=== PATIENT | male | born 1970 | race Caucasian/White ===

== ENCOUNTER 2017-07-04 23:31 | Emergency (ER) | payer MEDICAID ==
[~2017-07-04] VITALS: Ht 165.1 cm; Wt 95.3 kg
[2017-07-04 23:40] VITALS: BP 146/89
[2017-07-05] MEDS: KETOROLAC 60 MG/2 ML VIAL IM ONE (00:40)
[2017-07-05] MEDS: DEXAMETHASONE 10 MG/ML VIAL IM ONE (00:40)
[2017-07-05] MEDS ORDERED: methylPREDNISolone SS 125 MG/2 ML VIAL ONE (00:41)
[2017-07-05] MEDS: methylPREDNISolone SS 125 MG in WATER STERILE 2 ML IM ONE (00:42)
[2017-07-05 01:00] VITALS: BP 133/75
== END 2017-07-05 01:00 | disposition home or self-care (01) ==
LOC: MED 23:31
DX: T50.Z95A Adverse effect of other vaccines and biological substances, initial encounter (principal); T63.441A Toxic effect of venom of bees, accidental (unintentional), initial encounter; Y92.89 Other specified places as the place of occurrence of the external cause; Z88.1 Allergy status to other antibiotic agents
CPT/HCPCS: 96372; 99284; J1885; J2930

== ENCOUNTER 2017-10-29 11:27 | Inpatient (IN) | payer MEDICAID ==
[~2017-10-29] VITALS: Ht 165.1 cm; Wt 92.1 kg
[2017-10-29 11:39] VITALS: BP 149/99
[2017-10-29] MEDS ORDERED: NACL 0.9% 1,000 ML IV SCH (11:57)
[2017-10-29] MEDS ORDERED: KETOROLAC 30 MG/ML VIAL IVP ONE (12:00)
--- NOTE | 2017-10-29 12:15 | NUR ---
PATIENT PRESENTS TO ED WITH RIGHT SIDED ABD PAIN BURNING, RADIATING TO RIGHT FLANK SINCE 399; DENIES N/V/D HX NONE . DENIES N/V/D; SKIN IS PINK/WARM/DRY; AAOX4 WITH EVEN AND STEADY GAIT; LUNGS CLEAR BL; HR EVEN AND REGULAR; PT DENIES ANY FEVER, CP, SOB, OR COUGH AT THIS TIME; PATIENT STATES PAIN OF 8/10 AT THIS TIME; VSS; PATIENT POSITIONED FOR COMFORT; HOB ELEVATED; BEDRAILS UP X2; BED DOWN. ER MD MADE AWARE OF PT STATUS.
[2017-10-29 12:37] LABS: MEAN CORPUSCULAR VOLUME 75 fL (80-94)
[2017-10-29 12:41] LABS: APPEARANCE,URINE HAZY (CLEAR); BILIRUBIN,URINE NEGATIVE (NEGATIVE); BLOOD, URINE TRACE-I (NEGATIVE); COLOR,URINE YELLOW (YELLOW); LEUKOCYTE ESTERASE ,URINE NEGATIVE (NEGATIVE); NITRITE, URINE NEGATIVE (NEGATIVE); PH,URINE 5.5 (5.0-9.0); UGLUCOSE 3+ (NEGATIVE)
[2017-10-29 12:53] LABS: BASOPHILS # (AUTO) 0.4 K/uL (0.00-0.22); BASOPHILS % (AUTO) 3.6 % (0.0-2.0); EOSINOPHILS # (AUTO) 0.1 K/uL (0-0.4); EOSINOPHILS % (AUTO) 0.5 % (0.0-4.0); HEMATOCRIT 41.7 % (36-52); LYMPHOCYTES # (AUTO) 1.6 K/uL (2.0-11.5); LYMPHOCYTES % (AUTO) 13.6 % (20.5-51.1); MEAN CORPUSCULAR HEMOGLOBIN 25 pg (27-31); MEAN CORPUSCULAR HGB CONC 33 g/dL (33-37); MONOCYTES # (AUTO) 0.3 K/uL (0.8-1.0); MONOCYTES % (AUTO) 2.3 % (1.7-9.3); NEUTROPHILS # (AUTO) 9.2 K/uL (1.8-7.7); PLATELET COUNT (AUTO) 191 K/uL (140-450); RED CELL DISTRIBUTION WIDTH 12.3 % (11.6-13.7); WHITE BLOOD COUNT (AUTO) 11.6 K/uL (4.8-10.8)
[2017-10-29 12:55] LABS: ANION GAP 21.9 (8-16); POTASSIUM 3.9 mmol/L (3.5-5.1)
[2017-10-29 13:07] LABS: HEMOGLOBIN 13.8 g/dL (12.0-18.0)
[2017-10-29 13:20] LABS: RBC,URINE 0-5 (RARE) /HPF (0-5); WBC,URINE 0-5 (RARE) /HPF (0-5)
[2017-10-29] MEDS ORDERED: INSULIN HUMAN REGULAR 100 UNITS/ML 10 ML VIAL IVP ONE (13:20)
[2017-10-29] MEDS ORDERED: NACL 0.9% 1,000 ML IV ONE (13:20)
[2017-10-29] MEDS ORDERED: KETOROLAC 30 MG/ML VIAL IVP PRN (14:50)
[2017-10-29] MEDS ORDERED: MORPHINE SULFATE 4 MG/ML SYR IVP ONE (15:00)
[2017-10-29] MEDS ORDERED: ONDANSETRON 4 MG/2 ML VIAL IM/IVP PRN (15:05)
[2017-10-29] MEDS ORDERED: ACETAMINOPHEN 325 MG TAB PO PRN (15:05)
[2017-10-29] MEDS ORDERED: HYDROmorphone 1 MG/ML AMP IVP PRN (15:05)
--- NOTE | 2017-10-29 15:37 | NUR ---
Patient will be admitted to care of DR COLLINS. Admited to TELE. Will go to room 105A. Belongings list completed. Report to KEITH STAFFORD.
[2017-10-29 15:40] VITALS: BP 135/81
--- NOTE | 2017-10-29 15:40 | NUR ---
PATIENT ARRIVED ON MST UNIT VIA BED/GURNEY FROM ER. PATIENT ABLE TO AMBULATE FROM ER BED TO MST BED WITH STEADY GAIT. FAMILY MEMBERS AT BEDSIDE. NO DISTRESS NOTED. COMPLAINTS OF RIGHT UPPER ABDOMINAL PAIN THAT IS WITHIN TOLERABLE AT THIS TIME. RESPIRATIONS EVEN, UNLABORED, ON ROOM AIR. AAOX4, CALM, COOPERATIVE, SKIN COLOR APPROPRIATE TO ETHNICITY, WARM TO TOUCH. SKIN IS INTACT THROUGHOUT BODY. LUNGS CTA ON ALL LOBES. ABDOMEN SOFT, NON-DISTENDED. IV SITE INTACT, PATENT, AND STARTED PATIENT ON IVF PER ORDERS. ORIENTED PATIENT TO ROOM AND CALL LIGHT FUNCTION. REVIEWED PLAN OF CARE WITH PATIENT. PATIENT VERBALIZED UNDERSTANDING. SAFETY MEASURES IN PLACE, CALL LIGHT WITHIN REACH. WILL CONTINUE TO MONITOR.
[2017-10-29] MEDS: NACL 0.9% 1,000 ML IV SCH ×2 (16:06→20:28)
[2017-10-29 16:35] LABS: BARBITURATE, URINE NEG. ng/ml (NEG <=200); BENZODIAZEPINE, URINE NEG. ng/mL (NEG <=200); CANNABINOID, URINE POS. ng/mL (NEG <=50); COCAINE, URINE NEG. ng/mL (NEG <=300); OPIATE, URINE NEG. ng/mL (NEG <=2000); PHENCYCLIDINE SCREEN,URINE NEG. ng/mL (NEG <=25)
[2017-10-29] MEDS ORDERED: SIMETHICONE 80 MG TAB.CHEW PO PRN (16:55)
--- NOTE | 2017-10-29 17:12 | NUR ---
PATIENT COMPLAINS OF DRY MOUTH. NOTIFIED DR. ANAYA. ICE CHIPS GIVEN TO PATIENT PER MD ORDERS. WILL CONTINUE TO MONITOR.
--- NOTE | 2017-10-29 17:42 | NUR ---
PATIENT COMPLAINTS OF ABDOMINAL PAIN. GIVEN SIMETHICONE PER PATIENT REQUEST. REFUSES PAIN MEDICATION AT THIS TIME. EDUCATED PATIENT THAT DO NOT BE AFRAID TO ASK FOR PAIN MEDICATION BEFORE THE PAIN BECOMES TOO SEVERE. PATIENT VERBALIZES UNDERSTANDING. SAFETY MEASURES IN PLACE, CALL LIGHT WITHIN REACH. WILL CONTINUE TO MONITOR.
--- NOTE | 2017-10-29 18:30 | NUR ---
PATIENT LYING IN BED SLEEPING, AROUSABLE BY VOICE. NO DISTRESS NOTED. DENIES ANY PAIN. WILL CONTINUE TO MONITOR.
--- NOTE | 2017-10-29 19:22 | NUR ---
GAVE REPORT TO AUTOMATED MANUFACTURING INSTRUCTOR NURSE FOR CONTINUITY OF CARE. PATIENT IN STABLE CONDITION.
--- NOTE | 2017-10-29 19:30 | NUR ---
RECEIVED REPORT FROM AM NURSE. PT RESTING IN BED, AOX4, AMBULATORY, ABLE TO VERBALIZE NEEDS. FIRE HYDRANT OPERATOR IN PLACE. PT C/O RUQ SHARP PAIN, PAIN TOLERABLE, PT WILL CALL FOR PAIN MED IF NEEDED. PT DENIES NAUSEA/VOMITING. IV ACCESS ASYMPTOMATIC, PATENT AND INTACT. IVF INFUSING WELL. DISCUSSED AND REVIEWED PLAN OF CARE WITH PT. PT VERBALIZED UNDERSTANDING. ALL NEEDS MET. SAFETY MEASURES ENSURED. CALL LIGHT WITHIN REACH.
[2017-10-29 20:00] VITALS: BP 137/81
[2017-10-29] MEDS: BLOOD GLUCOSE MONITORING 1 DEV DEV FS SCH (20:27)
[2017-10-29] MEDS: INSULIN LISPRO SLIDING SCALE 100 UNITS/ML VIAL SUBQ PRN (20:27)
--- NOTE | 2017-10-29 20:28 | NUR ---
BLOOD GLUCOSE 232. SPOKE WITH DR AYALA, MADE MD AWARE OF BLOOD GLUSOSE AT THIS TIME, DISCUSSED THAT PT HAD ELEVATED GLUCOSE 518 IN ER AT ADMISSION, NO PRESENT HX OF DM. MD TO INCREASE IVF TO NS AT 200ML/HR AND OK TO ADMINISTER SLIDING SCALE INSULIN. ADMINISTERED INSULIN COVERAGE WITH EDUCATION, PT VERBALIZED UNDERSTANDING, TOLERATED MED WELL. ALL NEEDS MET. SAFETY MEASURES ENSURED. CALL LIGHT WITHIN REACH.
[2017-10-29 23:54] LABS: PHOSPHORUS 2.6 mg/dL (2.5-4.9)
[2017-10-29 23:55] LABS: MAGNESIUM 2.5 mg/dL (1.8-2.4)
[2017-10-30] VITALS: BP 140/97
--- NOTE | 2017-10-30 00:06 | NUR ---
PT C/O IV ON R AC OCCASIONALLY ALERTING PRESSURE WHEN PT BENDS ARM. PT AGREED TO INSERT NEW IV SITE. INSERTED NEW IV 20G ON R FA, CONTINUED TO ADMINISTERED IVF. IV ON R AC DISCONTINUED, CANNULA INTACT, PT TOLERATED WELL. PT C/O RUQ PAIN, REPORTS BETTER RELIEF THAN EARLIER, ALL NEEDS MET. IVF INFUSING WELL. SAFETY MEASURES ENSURED. CALL LIGHT WITHIN REACH.
[2017-10-30 00:47] LABS: CREATININE 0.9 mg/dL (0.7-1.3); TOTAL BILIRUBIN 0.4 mg/dL (0.0-1.0)
[2017-10-30 00:48] LABS: ALBUMIN 4.3 g/dL (3.4-5.0)
[2017-10-30] MEDS: NACL 0.9% 1,000 ML IV SCH ×2 (01:29→06:24)
--- NOTE | 2017-10-30 02:14 | NUR ---
PT C/O HEADACHE, SEE PAIN ASSESSMENT, ADMINISTERED TYLENOL PO PRN WITH EDUCATION. PT VERBALIZED UNDERSTANDING, TOLERATED MED WELL. ALL NEEDS MET. IVF INFUSING WELL. SAFETY MEASURES ENSURED. CALL LIGHT WITHIN REACH.
--- NOTE | 2017-10-30 03:45 | NUR ---
PT SLEEPING COMFORTABLY, AROUSABLE TO NAME. PT REPORTS SLIGHT RELIEF IN HEADACHE. ALL NEEDS MET. IVF INFUSING WELL. SAFETY MEASURES ENSURED. CALL LIGHT WITHIN REACH.
[2017-10-30 04:00] VITALS: BP 131/79
[2017-10-30] MEDS: INSULIN LISPRO SLIDING SCALE 100 UNITS/ML VIAL SUBQ PRN (06:23)
[2017-10-30] MEDS: BLOOD GLUCOSE MONITORING 1 DEV DEV FS SCH (06:23)
--- NOTE | 2017-10-30 06:24 | NUR ---
BLOOD GLUCOSE 252, ADMINISTERED INSULIN COVERAGE WITH EDUCATION. PT VERBALIZED UNDERSTANDING, TOLERATED MED WELL. ALL NEEDS MET. IVF INFUSING WELL. SAFETY MEASURES ENSURED. CALL LIGHT WITHIN REACH. WILL CONTINUE TO MONITOR.
--- NOTE | 2017-10-30 07:15 | NUR ---
ENDORSED PLAN OF CARE TO AM NURSE. CONDITION STABLE.
--- NOTE | 2017-10-30 07:16 | NUR ---
RECEIVED REPORT FROM POLITICAL SCIENCE CHAIR NURSE. PATIENT LYING IN BED SLEEPING, AROUSABLE BY VOICE. NO DISTRESS NOTED. DENIES ANY PAIN AT THIS TIME. RESPIRATIONS EVEN, UNLABORED, ON ROOM AIR. AAOX4, CALM, COOPERATIVE, SKIN COLOR APPROPRIATE TO ETHNICITY, WARM TO TOUCH. SKIN IS INTACT THROUGHOUT BODY. ABLE TO AMBULATE WITH STEADY GAIT. LUNGS CTA ON ALL LOBES. ABDOMEN SOFT, NON-DISTENDED. IV SITE INTACT, PATENT, AND INFUSING IVF PER ORDERS. REVIEWED PLAN OF CARE WITH PATIENT. PATIENT VERBALIZED UNDERSTANDING. SAFETY MEASURES IN PLACE, CALL LIGHT WITHIN REACH. WILL CONTINUE TO MONITOR.
[2017-10-30 08:00] VITALS: BP 136/75
--- NOTE | 2017-10-30 09:20 | NUR ---
PATIENT HAS BEEN SCREENED AND CATEGORIZED LOW NUTRITION RISK. PATIENT WILL BE SEEN WITHIN 7 DAYS OF ADMISSION. 11/04/[address]
[2017-10-30 09:56] LABS: PROTHROMBIN TIME 10.6 secs (10.8-13.4)
--- NOTE | 2017-10-30 10:17 | NUR ---
CM NOTE PER MOTORCYCLE SUBASSEMBLER EDUIN, SEND REVIEWS ONLY TO [facility] [phone] # [phone] [address] EXT [phone]
--- NOTE | 2017-10-30 10:30 | NUR ---
PATIENT WISHES TO LEAVE AMA DUE TO WORK CONSTRAINTS. PATIENT SAYS HE CANNOT AFFORD TO STAY ANOTHER NIGHT AND SKIP WORK DUE TO PATIENT ALREADY TAKEN MEDICAL LEAVE FOR WORK AND NEEDS TO PAY BILLS. DR. ANAYA AT BEDSIDE EXPLAINING THE RISKS OF LEAVING AMA. PATIENT VERBALIZED UNDERSTANDING AND WISHES TO PROCEED. AMA FORMED SIGNED BY PATIENT AND MD. IV SITE REMOVED WITH MINIMAL BLOOD AND LUMEN COMPLETELY INTACT. ID BANDS REMOVED. PATIENT ALREADY DRESSED UP AND IS AT BEDSIDE READY TO TAKE PATIENT HOME. ESCORTED PATIENT DOWN TO LOBBY VIA STEADY AMBULATION. PATIENT LEFT AMA AT THIS TIME WITH IN STABLE CONDITION.
[2017-10-31 06:16] LABS: T4 (THYROXINE) 8.2 ug/dL (4.5-12.0)
== END 2017-10-30 10:30 | disposition left against medical advice (07) | DRG 282 ==
LOC: MED 11:27 → MTU 14:45
PROVIDERS: ADMIT Family Medicine; ATTEND Family Medicine
DX: K85.90 Acute pancreatitis without necrosis or infection, unspecified (principal); N17.0 Acute kidney failure with tubular necrosis; E11.00 Type 2 diabetes mellitus with hyperosmolarity without nonketotic hyperglycemic-hyperosmolar coma (NKHHC); E87.1 Hypo-osmolality and hyponatremia; R80.9 Proteinuria, unspecified; Z53.21 Procedure and treatment not carried out due to patient leaving prior to being seen by health care provider; Z88.1 Allergy status to other antibiotic agents
CPT/HCPCS: 36415; 36600; 71045; 80053; 80305; 81001; 82150; 82803; 82948; 83036; 83615; 83690; 83735; 83880; 84100; 84436; 84439; 84443; 84479; 85025; 85610; 85730; 87081; 93005; 96361; 96374; 96375; 99285; J1815; J1885; J2270; J7030; Q0092

== ENCOUNTER 2017-10-31 10:06 | Observation (INO) | payer MEDICAID ==
[~2017-10-31] VITALS: Ht 165.1 cm; Wt 95.3 kg
[2017-10-31 10:19] VITALS: BP 157/90
--- NOTE | 2017-10-31 10:22 | NUR ---
PT W/C ASSISTED TO BED 11.
--- NOTE | 2017-10-31 10:23 | NUR ---
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 HX PANCREATITIS. DENIES N/V/D; SKIN IS PINK/WARM/DRY; AAOX4 WITH EVEN AND STEADY GAIT; LUNGS CLEAR BL; PT DENIES ANY FEVER, CP, SOB, OR COUGH AT THIS TIME; PATIENT STATES PAIN OF 10/10 AT THIS TIME; PATIENT POSITIONED FOR COMFORT; HOB ELEVATED; BEDRAILS UP X2; BED DOWN. ER MD MADE AWARE OF PT STATUS.
--- NOTE | 2017-10-31 10:30 | NUR ---
Note undone in EDM - 10/31/17 at 1031 by MED1 46/M BIB FATHER C/O RIGHT SIDED ABD PAIN STARTED LAST NIGHT; D/C YESTERDAY FROM HERE, DX PANCREATITIS. HX PANCREATITIS. DENIES N/V/D; SKIN IS PINK/WARM/DRY; AAOX4 WITH EVEN AND STEADY GAIT; LUNGS CLEAR BL; PT DENIES ANY FEVER, CP, SOB, OR COUGH AT THIS TIME; PATIENT STATES PAIN OF 10/10 AT THIS TIME; PATIENT POSITIONED FOR COMFORT; HOB ELEVATED; BEDRAILS UP X2; BED DOWN. ER MADE AWARE OF PT STATUS.
--- NOTE | 2017-10-31 10:54 | NUR ---
Patient being evaluated by DR CUELLAR at bedside.
[2017-10-31] MEDS ORDERED: NACL 0.9% 1,000 ML IV SCH ×2 (10:59→12:40)
[2017-10-31] MEDS ORDERED: ONDANSETRON 4 MG/2 ML VIAL IVP ONE (11:00)
[2017-10-31] MEDS ORDERED: MORPHINE SULFATE 10 MG/ML SYR IVP ONE (11:00)
[2017-10-31 11:32] LABS: HEMATOCRIT 40.5 % (36-52); HEMOGLOBIN 13.1 g/dL (12.0-18.0); MEAN CORPUSCULAR HEMOGLOBIN 25 pg (27-31); MEAN CORPUSCULAR HGB CONC 32 g/dL (33-37); MEAN CORPUSCULAR VOLUME 77 fL (80-94); PLATELET COUNT (AUTO) 272 K/uL (140-450); RED BLOOD CELL COUNT(AUTO) 5.26 MIL/uL (4.20-6.10); RED CELL DISTRIBUTION WIDTH 12.9 % (11.6-13.7); WHITE BLOOD COUNT (AUTO) 18.2 K/uL (4.8-10.8)
[2017-10-31 11:51] LABS: LYMPHOCYTES % (MANUAL) 12 % (20-46); MONOCYTES % (MANUAL) 4 % (5-12)
--- NOTE | 2017-10-31 11:58 | NUR ---
FAMILY AT BEDSIDE. R ABD PAIN 4/10 AT THIS TIME. Patient appears to be resting comfortably in bed. Vital Signs within normal limits. Respirations even and unlabored.WILL CONTINUE TO MONITOR.
[2017-10-31 12:02] LABS: ANION GAP 24.2 (8-16); POTASSIUM 4.2 mmol/L (3.5-5.1)
[2017-10-31 12:03] LABS: TOTAL BILIRUBIN 0.9 mg/dL (0.0-1.0)
[2017-10-31 12:04] LABS: ALBUMIN 3.4 g/dL (3.4-5.0)
[2017-10-31 12:23] LABS: APPEARANCE,URINE HAZY (CLEAR); BILIRUBIN,URINE 1+ (NEGATIVE); BLOOD, URINE 2+ (NEGATIVE); COLOR,URINE YELLOW (YELLOW); LEUKOCYTE ESTERASE ,URINE NEGATIVE (NEGATIVE); NITRITE, URINE NEGATIVE (NEGATIVE); UGLUCOSE 2+ (NEGATIVE)
[2017-10-31] MEDS ORDERED: MORPHINE SULFATE 2 MG/ML SYR IVP PRN (12:40)
[2017-10-31] MEDS ORDERED: MORPHINE SULFATE 4 MG/ML SYR IVP PRN (12:40)
[2017-10-31] MEDS ORDERED: ONDANSETRON 4 MG/2 ML VIAL IVP PRN (12:40)
[2017-10-31] MEDS ORDERED: LORazepam 2 MG/ML VIAL IVP PRN (12:40)
[2017-10-31 13:04] LABS: RBC,URINE 0-5 (RARE) /HPF (0-5); WBC,URINE 0-5 (RARE) /HPF (0-5)
[2017-10-31] MEDS ORDERED: ACETAMINOPHEN 325 MG TAB PO PRN (13:40)
[2017-10-31] MEDS ORDERED: HYDROcodone/APAP 7.5/325 MG 1 TAB PO PRN (13:40)
[2017-10-31] MEDS ORDERED: DOCUSATE SODIUM 100 MG GELCAP PO PRN (13:40)
[2017-10-31] MEDS ORDERED: ONDANSETRON 4 MG/2 ML VIAL IM/IVP PRN (13:40)
[2017-10-31 14:10] VITALS: BP 145/95
--- NOTE | 2017-10-31 14:10 | NUR ---
PATIENT ADMITTED TO THE UNIT FROM ER. PATIENT AWAKE, ALERT AND ORIENTED. NO S/S OF DISTRESS NOTED. PATIENT ON ROOM AIR. NO SOB. PATIENT REPORTS OF 6/10 ABD PAIN. WILL MEDICATE. NO NAUSEA OR VOMITING AT THIS TIME. PATIENT ON TELE MONITORING. BED LOWERED WITH CALL LIGHT WITHIN REACH. WILL CONTINUE TO MONITOR
--- NOTE | 2017-10-31 14:14 | NUR ---
Patient will be admitted to care of DR LEVINE. Admited to TELE. Will go to [id number]. Belongings list completed. Report to KEITH STOVALL.
[2017-10-31 14:49] LABS: PROTHROMBIN TIME 11.2 secs (10.8-13.4)
[2017-10-31] MEDS: HYDROmorphone PFS 2 MG/ML SYR IVP PRN ×3 (14:51→23:17)
[2017-10-31 14:53] LABS: BARBITURATE, URINE NEG. ng/ml (NEG <=200); BENZODIAZEPINE, URINE NEG. ng/mL (NEG <=200); CANNABINOID, URINE NEG. ng/mL (NEG <=50); COCAINE, URINE NEG. ng/mL (NEG <=300); OPIATE, URINE POS. ng/mL (NEG <=2000); PHENCYCLIDINE SCREEN,URINE NEG. ng/mL (NEG <=25)
[2017-10-31 15:00] LABS: FREE T4 (FREE THYROXINE) 1.13 ng/dL (0.76-1.46); MAGNESIUM 1.8 mg/dL (1.8-2.4); PHOSPHORUS 2.1 mg/dL (2.5-4.9); THYROID STIMULATING HORMONE 1.64 uIU/mL (0.34-3.74)
[2017-10-31] MEDS: NACL 0.9% 1,000 ML IV SCH (15:10)
--- NOTE | 2017-10-31 15:29 | NUR ---
TEMP 100.8. PRN TYLENOL ADMINISTERED. COOLING MEASURES IN PLACE. WILL CONTINUE TO MONITOR
--- NOTE | 2017-10-31 16:30 | NUR ---
TEMP 98.5. NO S/S OF DISTRESS NOTED
[2017-10-31] MEDS ORDERED: LEVOFLOXACIN 500 MG/D5W PREMIX 100 ML IV SCH (17:00)
--- NOTE | 2017-10-31 17:59 | NUR ---
LEVAQUIN IVPB DONE
--- NOTE | 2017-10-31 19:19 | NUR ---
PATIENT REPORT GIVEN AT BEDSIDE. PATIENT ENDORSED IN STABLE CONDITION
[2017-10-31 20:00] VITALS: BP 138/81
--- NOTE | 2017-10-31 20:01 | NUR ---
PT C/O OF PAIN, PAIN MEDICATION GIVEN, PT TOLERATED WELL, NO DISTRESS NOTED, CALL LIGHT WITHIN REACH, WILL CONTINUE TO MONITOR.
[2017-10-31] MEDS: CLINDAMYCIN 600 MG in DEXTROSE 5% 50 ML IV SCH (20:36)
--- NOTE | 2017-10-31 21:06 | NUR ---
CLINDAMYCIN ANTIBIOTIC FINISHED INFUSING.
--- NOTE | 2017-10-31 21:06 | NUR ---
IVF NS FINISHED INFUSING Addendum: 11/25/17 at 0405 by Katty Solares RN WORNG INTERVENTION
--- NOTE | 2017-10-31 21:36 | NUR ---
DUE MEDICATION GIVEN, PT TOLERATED WELL, NO DISTRESS NOTED, CALL LIGHT WITHIN REACH, WILL CONTINUE TO MONITOR.
--- NOTE | 2017-10-31 23:17 | NUR ---
PT C/O OF PAIN IN THE ABD 05/11, DUE PAIN MEDICATION GIVEN, PT TOLERATED WELL, NO DISTRESS NOTED, CALL LIGHT WITHIN REACH, WILL CONTINUE TO MONITOR.
[2017-11-01] VITALS: BP 134/80
[2017-11-01] MEDS: HYDROmorphone PFS 2 MG/ML SYR IVP PRN ×2 (03:18→08:21)
--- NOTE | 2017-11-01 03:18 | NUR ---
PT C/O OF PAIN IN THE ABD, 8/10 ACHING, PAIN MEDICATION GIVEN, PT TOLERATED WELL, STABLE, NO DISTRESS NOTED, WILL CONTINUE TO MONITOR.
[2017-11-01 04:00] VITALS: BP 140/76
[2017-11-01] MEDS: CLINDAMYCIN 600 MG in DEXTROSE 5% 50 ML IV SCH (05:31)
[2017-11-01] MEDS ORDERED: INSULIN LISPRO SLIDING SCALE 100 UNITS/ML VIAL SUBQ PRN (05:55)
--- NOTE | 2017-11-01 06:00 | NUR ---
IVF NS FINISHED INFUSING. Addendum: 11/25/17 at 0404 by Katty Solares RN WRONG INTERVENTION
--- NOTE | 2017-11-01 06:00 | NUR ---
CLINDAMYCIN ANTIBIOTIC FINISHED INFUSING.
[2017-11-01 06:12] LABS: T4 (THYROXINE) 6.8 ug/dL (4.5-12.0)
[2017-11-01] MEDS: NACL 0.9% 1,000 ML IV SCH ×2 (06:54→11:50)
--- NOTE | 2017-11-01 06:54 | NUR ---
IVF NS FINISHED INFUSING
[2017-11-01] MEDS: BLOOD GLUCOSE MONITORING 1 DEV DEV FS SCH ×2 (06:55→12:36)
[2017-11-01 07:16] LABS: HEMATOCRIT 35.8 % (36-52); HEMOGLOBIN 11.8 g/dL (12.0-18.0); MEAN CORPUSCULAR HEMOGLOBIN 25 pg (27-31); MEAN CORPUSCULAR HGB CONC 33 g/dL (33-37); MEAN CORPUSCULAR VOLUME 76 fL (80-94); PLATELET COUNT (AUTO) 246 K/uL (140-450); RED BLOOD CELL COUNT(AUTO) 4.68 MIL/uL (4.20-6.10); RED CELL DISTRIBUTION WIDTH 13.3 % (11.6-13.7); WHITE BLOOD COUNT (AUTO) 15.4 K/uL (4.8-10.8)
--- NOTE | 2017-11-01 07:17 | NUR ---
ENDORSED PT TO DAY SHIFT NURSE GENNA PARKER, PT STABLE, NO DISTRESS NOTED, CALL LIGHT WITHIN REACH.
--- NOTE | 2017-11-01 07:20 | NUR ---
RECEIVED PATIENT REPORT AT BEDSIDE FROM NIGHT NURSE, PATIENT IS SLEEPING AND EASILY AROUSABLE. HE IS AAOX4 AND SHOWS NO S/S OF ACUTE DISTRESS ON ROOM AIR. PATIENT STATES RIGHT SIDED ABD PAIN OF 5/10 THAT IS "INCREASING" AND WOULD LIKE TO TAKE HIS PAIN MEDICATION "SOON BEFORE IT BECOMES UNTOLERABLE." IV NOTED ON THE RIGHT AC WITH IVF'S INFUSING WELL, SKIN IS INTACT, ON TELE MONITOR. DISCUSSED POC WITH PATIENT AND HE VERBALIZED UNDERSTANDING OF CARE, SAFETY PRECAUTIONS IN PLACE. BED IN LOW POSITION WITH CALL LIGHT WITHIN REACH.
[2017-11-01 07:34] LABS: MAGNESIUM 1.7 mg/dL (1.8-2.4); PHOSPHORUS 1.6 mg/dL (2.5-4.9)
[2017-11-01 07:46] LABS: ANION GAP 23.4 (8-16); CARBON DIOXIDE 14.5 mmol/L (21-32); POTASSIUM 3.9 mmol/L (3.5-5.1)
[2017-11-01 08:00] VITALS: BP 143/81
[2017-11-01 08:25] LABS: CREATININE 0.9 mg/dL (0.7-1.3)
--- NOTE | 2017-11-01 08:25 | NUR ---
PATIENT STATED ABD PAIN IS NOW 7/10,ADMINISTERED DILAUDID 0.5 MG IVP, WILL REASSESS PAIN IN ONE HR. ALL NEEDS MET AT THIS TIME.
[2017-11-01 08:30] LABS: LYMPHOCYTES % (MANUAL) 7 % (20-46); MONOCYTES % (MANUAL) 5 % (5-12)
--- NOTE | 2017-11-01 08:57 | NUR ---
PATIENT HAS BEEN SCREENED AND CATEGORIZED MODERATE NUTRITION RISK. PATIENT WILL BE SEEN WITHIN 3-5 DAYS OF ADMISSION. 11/02/17-11/04/[address]
[2017-11-01] MEDS ORDERED: ENOXAPARIN 40 MG/0.4 ML SYR SUBQ ONE (09:00)
[2017-11-01] MEDS ORDERED: SODIUM PHOS / POTASSIUM PHOS 1 PKT PDR PO SCH (09:52)
--- NOTE | 2017-11-01 10:25 | NUR ---
PATIENT RECEIVING US OF THE ABD AT THIS TIME, WILL TRY AGAIN LATER TO GIVE SCHEDULED MEDICATION.
--- NOTE | 2017-11-01 11:14 | NUR ---
CM NOTE RECEIVED CALL FROM ATUL MARROQUIN PH# [phone] EXT [phone] OF [facility] AND I GAVE HER A VERBAL CLINICAL UPDATE ON THE PATIENT. PER CARA NO NEED TO SEND [facility] A REVIEW BUT JUST TO SEND H&P. FAXED H&P TO [facility] [phone]. PER [facility] ATUL MARROQUIN, PATIENT HAS TO BE TRANSFERRED TO ONE OF THEIR CONTRACTED FACILITIES [facility], MED SURG FLR [address], ACCEPTING DR. VIEYRA, NUMBER TO CALL FOR REPORT PH# [phone], FOR [facility] AUTH# [id number]. PER KIRK OF [facility] PH# [phone] TRAUMA COORDINATOR TIME 1300 TODAY GOING TO [facility]. DR. ANAYA, CHARGE NURSE GENNA PARDO RN AND PATIENT AWARE.
[2017-11-01] MEDS ORDERED: NACL 0.9% 1,000 ML IV SCH (12:06)
--- NOTE | 2017-11-01 12:14 | NUR ---
1100 MET WITH PT AT BEDSIDE AND INFORMED HIM OF THE POSSIBILITY OF TRANSFERRING TO AN IN [facility] HAS REQUESTED. PT STATED HE UNDERSTOOD BUT HOPED THAT HE COULD STAY HERE AT [facility].
[2017-11-01 12:30] VITALS: BP 141/93
--- NOTE | 2017-11-01 13:00 | NUR ---
IVF'S NS FINISHED.
--- NOTE | 2017-11-01 13:35 | NUR ---
PATIENT LEAVING WITH IV ON THE RIGHT AC 20 G.
--- NOTE | 2017-11-01 13:38 | NUR ---
[facility] CAME ONTO UNIT, GAVE REPORT TO RENEE, PATIENT STATED HE WANTED PAIN MEDICATION HOWEVER UNABLE TO GIVE D/T PROTOCOL. PATIENT HAD REFUSED INSULIN, IV ABX WAS NOT GIVEN BC [facility] ARRIVED ONTO UNIT AND PATIENT GETTING READY TO BE DISCHARGE TO [place] TO [facility] ON [address]. PATIENT HAS BEEN DISCHARGED, ALL PAPERWORK SIGNED, ALL DISCHARGE INSTRUCTIONS GIVEN, ALL QUESTIONS ANSWERED, IMAGE CD WITH PATIENT, ALL BELONGINGS IN PATIENT'S POSSESSION. TELE BOX REMOVED. PATIENT LEFT IN STABLE CONDITION WITH [facility] PRESENT AT SIDE.
--- NOTE | 2017-11-01 13:45 | NUR ---
PATIENT OFF UNIT
== END 2017-11-01 13:42 | disposition short-term general hospital (02) ==
LOC: MED 10:06 → INTOOBSV 13:31 → MTU 13:31
PROVIDERS: ADMIT Family Medicine Sports Medicine; ATTEND Family Medicine Sports Medicine
DX: R10.13 Epigastric pain (principal); R10.11 Right upper quadrant pain; R80.9 Proteinuria, unspecified; E87.1 Hypo-osmolality and hyponatremia; F12.929 Cannabis use, unspecified with intoxication, unspecified
CPT/HCPCS: 36415; 71045; 74177; 76700; 80048; 80053; 80305; 81001; 82150; 82948; 83605; 83615; 83690; 83735; 84100; 84436; 84439; 84443; 84479; 85025; 85610; 85730; 87040; 87081; 87086; 93005; 96361; 96365; 96367; 96372; 96375; 96376; 99285; G0378; J1170; J1815; J1956; J2270; J2405; J3490; J7030; J7060; Q0092; Q9967; 96374

== ENCOUNTER 2018-04-20 20:06 | Emergency (ER) | payer MEDICAID ==
[~2018-04-20] VITALS: Ht 165.1 cm; Wt 87.1 kg
[2018-04-20 20:08] VITALS: BP 130/84
--- NOTE | 2018-04-20 20:13 | NUR ---
PT AMBULATED TO ER BED 4 W/ DAUGHTER.
--- NOTE | 2018-04-20 20:20 | NUR ---
C/O CELLULITIS TO LT MEDIAL LEG S/P INSECT BITE X 1 DAY. +REDNESS +MILD EDEMA TO SITE, ALSO REPORTS NAUSEA. PT IS AWAKE AND ACTING APPROPRIATE.PT LAYING IN BED IN NO ACUTE DISTRESS, DAUGHTER SITTING IN BED WELL. PMH: PREDIABETES
[2018-04-20] MEDS ORDERED: IBUPROFEN 800 MG TAB PO ONE (21:05)
[2018-04-20 21:26] VITALS: BP 125/85
--- NOTE | 2018-04-20 21:26 | NUR ---
Patient discharged with v/s stable. Written and verbal after care instructions given and explained. Patient alert, oriented and verbalized understanding of instructions. Ambulatory with steady gait. All questions addressed prior to discharge. ID band removed. Patient advised to follow up with PMD. Rx of CLINDAMYCIN AND MOTRIN given. Patient educated on indication of medication including possible reaction and side effects. Opportunity to ask questions provided and answered.
== END 2018-04-20 21:26 | disposition home or self-care (01) ==
LOC: MED 20:06
DX: S80.862A Insect bite (nonvenomous), left lower leg, initial encounter (principal); Z88.1 Allergy status to other antibiotic agents; W57.XXXA Bitten or stung by nonvenomous insect and other nonvenomous arthropods, initial encounter; Y93.89 Activity, other specified; Y92.89 Other specified places as the place of occurrence of the external cause; Y99.8 Other external cause status
CPT/HCPCS: 99283

== ENCOUNTER 2018-08-24 18:50 | Emergency (ER) | payer MEDICAID ==
[~2018-08-24] VITALS: Ht 165.1 cm; Wt 89.4 kg
[2018-08-24 18:58] VITALS: BP 145/87
--- NOTE | 2018-08-24 18:58 | NUR ---
PT AMBULATED TO ER BED 03
--- NOTE | 2018-08-24 19:13 | NUR ---
PT PRESENTS TO ED WITH C/O ABSCESS TO GROIN AREA X 1 DAY. SMALL, REDDENED LUMP NOTED TO RIGHT GROIN AREA. NO DRAINAGE OR DISCHARGE NOTED. PT PLACED INTO BED, PENDING MD GRIFFIN.
--- NOTE | 2018-08-24 19:23 | NUR ---
Dr. Anderson evaluating patient at bedside.
[2018-08-24] MEDS ORDERED: KETOROLAC 30 MG/ML VIAL IM ONE (19:30)
[2018-08-24 19:57] VITALS: BP 130/80
--- NOTE | 2018-08-24 19:58 | NUR ---
Patient discharged with v/s stable. Written and verbal after care instructions given and explained. Patient alert, oriented and verbalized understanding of instructions. Ambulatory with steady gait. All questions addressed prior to discharge. ID band removed. Patient advised to follow up with PMD. Rx of NAPROSYN, TYLENOL, BACTRIM given. Patient educated on indication of medication including possible reaction and side effects. Opportunity to ask questions provided and answered.
== END 2018-08-24 19:58 | disposition home or self-care (01) ==
LOC: MED 18:50
DX: L73.1 Pseudofolliculitis barbae (principal); Z88.1 Allergy status to other antibiotic agents
CPT/HCPCS: 96372; 99284; J1885

== ENCOUNTER 2018-08-26 15:36 | Emergency (ER) | payer MEDICAID ==
[~2018-08-26] VITALS: Ht 165.1 cm; Wt 89.4 kg
[2018-08-26 15:45] VITALS: BP 121/79
--- NOTE | 2018-08-26 15:45 | NUR ---
PT AMBULATES TO BED 5
--- NOTE | 2018-08-26 15:50 | NUR ---
47Y/M BIB SELF C/O RECHECK FOR RT GROIN ABSCESS WITH PAIN AND DISCHARGE SEEN ON 08/24/2018. PT IS AAOX4, VSS, BED DOWN, BEDRAIL UP X 1, ER MD AWARE AND NOTIFIED OF PT STATUS. HX; DENIES RX; DENIES
[2018-08-26 17:50] VITALS: BP 121/79
--- NOTE | 2018-08-26 17:58 | NUR ---
PT STATES "THE WAIT WAS TO LONG, PT IS JUST GONNA GO SOMEWHERE ELSE".
--- NOTE | 2018-08-26 17:58 | NUR ---
PATIENT LEFT WITHOUT BEING SEEN BY DR. AYALA. NO FURTHER CARE PROVIDED FOR PATIENT.
== END 2018-08-26 17:58 | disposition left against medical advice (07) ==
LOC: MED 15:36
DX: Z48.01 Encounter for change or removal of surgical wound dressing (principal); Z53.21 Procedure and treatment not carried out due to patient leaving prior to being seen by health care provider

== ENCOUNTER 2019-02-05 10:45 | Emergency (ER) | payer MEDICAID ==
[~2019-02-05] VITALS: Ht 165.1 cm; Wt 90.3 kg
[2019-02-05 10:56] VITALS: BP 144/93
--- NOTE | 2019-02-05 11:02 | NUR ---
PATIENT PRESENTS TO ED WITH c/o cough congestion bodyaches fever fatigue sob x2 days . DENIES N/V/D; SKIN IS PINK/WARM/DRY; AAOX4 WITH EVEN AND STEADY GAIT; LUNGS CLEAR BL; HR EVEN AND REGULAR; PATIENT STATES PAIN OF 6/10 AT THIS TIME; VSS; PATIENT POSITIONED FOR COMFORT; HOB ELEVATED; BEDRAILS UP X2; BED DOWN. ER MD MADE AWARE OF PT STATUS.
[2019-02-05] MEDS ORDERED: ALBUTEROL 0.083% 2.5 MG/3 ML NEBU INH ONE (11:15)
[2019-02-05] MEDS ORDERED: predniSONE 20 MG TAB PO ONE (11:15)
[2019-02-05] MEDS ORDERED: IPRATROPIUM 0.02% 0.5 MG/2.5 ML NEBU INH ONE (11:15)
[2019-02-05 12:35] VITALS: BP 145/90
--- NOTE | 2019-02-05 12:35 | NUR ---
Patient discharged with v/s stable. Written and verbal after care instructions given and explained. Patient alert, oriented and verbalized understanding of instructions. Ambulatory with steady gait. All questions addressed prior to discharge. ID band removed. Patient advised to follow up with PMD. Rx of prednisone/tessalon/ibuprofen/albuterol given. Patient educated on indication of medication including possible reaction and side effects. Opportunity to ask questions provided and answered.
== END 2019-02-05 12:35 | disposition home or self-care (01) ==
LOC: MED 10:45
DX: J06.9 Acute upper respiratory infection, unspecified (principal); J98.01 Acute bronchospasm; R19.7 Diarrhea, unspecified; E11.9 Type 2 diabetes mellitus without complications; Z88.1 Allergy status to other antibiotic agents; Z98.890 Other specified postprocedural states
CPT/HCPCS: 94640; 99283; J7512; J7613; J7644

== ENCOUNTER 2019-05-08 15:05 | Emergency (ER) | payer MEDICAID ==
[~2019-05-08] VITALS: Ht 165.1 cm; Wt 90.7 kg
[2019-05-08 15:27] VITALS: BP 128/87
--- NOTE | 2019-05-08 15:27 | NUR ---
PT AMBULATED TO BED 9
--- NOTE | 2019-05-08 15:30 | NUR ---
PT PRESENTED TO ED C/O RIGHT CHEST PAIN THAT STARTED TODAY AFTER CLEANING UP HIS DRIVEWAY. NO C/O TRAUMA OR N/V/D. PT STATED TAKING ASPIRIN 350MG BUT DID NOT HELP, PT ABLE TO MOVE BILATERAL ARMS BUT STILL C/O PAIN RIGHT CHEST PAIN 5/10 ACHING/SORENESS, DOES NOT RADIATE, PT STATED "ITS MORE LIKE A MUSCLE SORE". AAOX4, RR EVEN UNLABORED, ED MD DR. CUELLAR MADE AWARE, WILL CONTINUE TO MONITOR CLOSELY. BED IN LOWEST POSITION.
--- NOTE | 2019-05-08 16:29 | NUR ---
LAB AT BEDSIDE
--- NOTE | 2019-05-08 16:30 | NUR ---
PT IN BED RESTING, VVS AT THIS TIME. WILL CONTINUE TO MONITOR CLOSELY.
[2019-05-08 17:02] LABS: BASOPHILS % (AUTO) 0.6 % (0.0-2.0); EOSINOPHILS # (AUTO) 0.1 K/uL (0-0.4); EOSINOPHILS % (AUTO) 0.7 % (0.0-4.0); HEMATOCRIT 40.1 % (36-52); HEMOGLOBIN 13.2 g/dL (12.0-18.0); LYMPHOCYTES # (AUTO) 2.6 K/uL (2.0-11.5); LYMPHOCYTES % (AUTO) 32.4 % (20.5-51.1); MEAN CORPUSCULAR HEMOGLOBIN 26 pg (27-31); MEAN CORPUSCULAR HGB CONC 33 g/dL (33-37); MEAN CORPUSCULAR VOLUME 77.3 fL (80-94); MONOCYTES # (AUTO) 0.5 K/uL (0.8-1.0); MONOCYTES % (AUTO) 6.1 % (1.7-9.3); NEUTROPHILS # (AUTO) 4.9 K/uL (1.8-7.7); NEUTROPHILS % (AUTO) 60.2 % (42.2-75.2); PLATELET COUNT (AUTO) 292 K/uL (140-450); RED BLOOD CELL COUNT(AUTO) 5.18 MIL/uL (4.20-6.10); RED CELL DISTRIBUTION WIDTH 14.1 % (11.6-13.7); WHITE BLOOD COUNT (AUTO) 8.2 K/uL (4.8-10.8)
[2019-05-08 17:15] LABS: ANION GAP 11.6 (8-16); CARBON DIOXIDE 27.3 mmol/L (21-32); POTASSIUM 3.9 mmol/L (3.5-5.1)
[2019-05-08 17:21] LABS: ALBUMIN 3.9 g/dL (3.4-5.0); TOTAL BILIRUBIN 0.3 mg/dL (0.0-1.0)
[2019-05-08 17:50] VITALS: BP 119/76
--- NOTE | 2019-05-08 17:50 | NUR ---
Patient discharged with v/s stable. Written and verbal after care instructions given and explained. Patient alert, oriented and verbalized understanding of instructions. Ambulatory with steady gait. All questions addressed prior to discharge. ID band removed. Patient advised to follow up with PMD. Rx of NAPROSYN 375MG given. Patient educated on indication of medication including possible reaction and side effects. Opportunity to ask questions provided and answered.
== END 2019-05-08 17:50 | disposition home or self-care (01) ==
LOC: MED 15:05
DX: R07.89 Other chest pain (principal); R73.03 Prediabetes; Z88.1 Allergy status to other antibiotic agents; Z98.890 Other specified postprocedural states
CPT/HCPCS: 36415; 71045; 80053; 84484; 85025; 93005; 99284; Q0092

== ENCOUNTER 2019-11-18 18:58 | Emergency (ER) | payer MEDICAID ==
[~2019-11-18] VITALS: Ht 165.1 cm; Wt 93.0 kg
[2019-11-18 19:20] VITALS: BP 140/82
--- NOTE | 2019-11-18 19:23 | NUR ---
TO LOBBY A/W BED AMBULATORY
--- NOTE | 2019-11-18 20:46 | NUR ---
PT TAKEN TO BED 7
--- NOTE | 2019-11-18 20:50 | NUR ---
PT C/O 05/11 MUSCULOSKELETAL PAIN SURROUNDING THE RIGHT EAR. STATES IT HAS BEEN GOING ON FOR 1 WEEK BUT IS PROGRESSIVELY GETTING WORSE. STATES THERE IS STIFFNESS IN THE NECK; PAIN RADIATES TO BACK OF NECK/ HEAD. HX OF MIGRAINES; STATES MIGRAINES HAVE BEEN GETTING WORSE SINCE THIS EAR/NECK PAIN STARTED. REPORTS DECREASED RANGE OF MOTION IN THE NECK. STATES HE HAS BEEN TAKING IBUPROFEN AND TYLENOL FOR PAIN WITH NO RELIEF. DENIES HAVING ANY TRAUMA TO THE BODY OR NECK AREA, DENIES LIFTING/WORKING OUT/ PULLING MUSCLE/ ACTIVITY TO INITIATE THIS PAIN. DENIES HAVING ANY RECENT INFECTIONS OR ILLNESSES, DENIES IV DRUG USE. DENIES COUGH/CHILL OR MALAISE. DENIES CP, SOB, ABD PAIN. RR EVEN AND UNLABORED. PATIENT RESTING UPRIGHT IN GURNEY HOLDING EAR AND NECK.
[2019-11-18] MEDS ORDERED: NACL 0.9% 1,000 ML IV ONE (20:55)
[2019-11-18] MEDS ORDERED: KETOROLAC 30 MG/ML VIAL IVP ONE (20:55)
--- NOTE | 2019-11-18 20:55 | NUR ---
DR GÓMEZ IN ROOM WITH PT.
--- NOTE | 2019-11-18 21:00 | NUR ---
STARTED IV ON PT, GAVE TORADOL, STARTED IV ABX AND IVF BOLUS NS. WILL CONTINUE TO MONITOR.
[2019-11-18] MEDS ORDERED: cefTRIAXone 1,000 MG VIAL ONE (21:05)
--- NOTE | 2019-11-18 22:15 | NUR ---
PT REPORTS IMPROVEMENT IN PAIN 5/10 AFTER TORADOL AND IV ABX. WILL CONTINUE TO MONITOR
[2019-11-18 22:25] VITALS: BP 118/79
--- NOTE | 2019-11-18 22:45 | NUR ---
Patient discharged with v/s stable. Written and verbal after care instructions given and explained. Patient alert, oriented and verbalized understanding of instructions. Ambulatory with steady gait. All questions addressed prior to discharge. ID band removed. Patient advised to follow up with PMD. Rx of NAPROSYN, LEVAQUIN given. Patient educated on indication of medication including possible reaction and side effects. Opportunity to ask questions provided and answered. DISCHARGED BY DR GÓMEZ.
== END 2019-11-18 22:45 | disposition home or self-care (01) ==
LOC: MED 18:58
DX: J02.9 Acute pharyngitis, unspecified (principal); E11.9 Type 2 diabetes mellitus without complications; Z88.1 Allergy status to other antibiotic agents
CPT/HCPCS: 96365; 96375; 99284; J0696; J1885; J7030

== ENCOUNTER 2020-03-01 19:42 | Emergency (ER) | payer MEDICAID ==
[~2020-03-01] VITALS: Ht 165.1 cm; Wt 96.2 kg
[2020-03-01 19:48] VITALS: BP 123/83
--- NOTE | 2020-03-01 19:51 | NUR ---
PT AMBULATED TO BED #4
--- NOTE | 2020-03-01 19:55 | NUR ---
49 YO M BIB SELF FOR C/C OF 710 LEFT NECK PAIN POST BEE STING 20 MIN AGO. STINGER STILL EMBEDED IN SKIN. REMOVED STINGER USING TWEEZERS. SLIGHT INFLAMMATION AND REDNESS LOCALLY. PT DENIES FEELINGS OF SOB OR THROAT CONSTRICTION. ICE PACK PROVIDED POST STINGER REMOVAL. DENIES TAKING ANY PAIN MEDICATION. NO FEVER, COUGH, SOB, OR TRAVEL. BED LOCKED AND IN LOWEST POSITION. ALLERGIES TO AMOXICILLIN NO MED HX NO RX
[2020-03-01] MEDS ORDERED: KETOROLAC 60 MG/2 ML VIAL IM ONE (20:00)
--- NOTE | 2020-03-01 20:00 | NUR ---
Dr. Bourne examining patient.
--- NOTE | 2020-03-01 20:25 | NUR ---
PT STATES HIS 7/10 PAIN HAS REDUCED TO 4/10 POST IM TORODOL. PT STILL DENIES ANY SOB OR S/S OF ALLERGIC REACTION. RESTING IN BED COMFORTABLY. EQUAL CHEST RISE AND FALL. SAFETY MEASURES IN PLACE.
[2020-03-01 20:39] VITALS: BP 123/83
--- NOTE | 2020-03-01 20:39 | NUR ---
Patient discharged with v/s stable. Written and verbal after care instructions given and explained. Patient alert, oriented and verbalized understanding of instructions. Ambulatory with steady gait. All questions addressed prior to discharge. ID band removed. Patient advised to follow up with PMD. Rx of BENADRYL given. Patient educated on indication of medication including possible reaction and side effects. Opportunity to ask questions provided and answered.
--- NOTE | 2020-03-01 23:24 | NUR ---
Note slime in EDM - 03/01/20 at 2328 by [email or web address] Patient discharged with v/s stable. Written and verbal after care instructions given and explained. Patient alert, oriented and verbalized understanding of instructions. Ambulatory with steady gait. All questions addressed prior to discharge. ID band removed. Patient advised to follow up with PMD. Rx of PEPCID, MACROBID given. Patient educated on indication of medication including possible reaction and side effects. Opportunity to ask questions provided and answered.
== END 2020-03-01 20:39 | disposition home or self-care (01) ==
LOC: MED 19:42
DX: T63.441A Toxic effect of venom of bees, accidental (unintentional), initial encounter (principal); Z88.1 Allergy status to other antibiotic agents; Z98.890 Other specified postprocedural states; Y92.89 Other specified places as the place of occurrence of the external cause
CPT/HCPCS: 96372; 99283; J1885; Q0163

== ENCOUNTER 2020-07-20 18:58 | Emergency (ER) | payer MEDICAID ==
[~2020-07-20] VITALS: Ht 165.1 cm; Wt 94.3 kg
[2020-07-20 19:04] VITALS: BP 148/49
--- NOTE | 2020-07-20 19:15 | NUR ---
49 Y/O MALE PRESENTED TO ED C/O ACHING RIGHT LOWER BACK PAIN /10 X 3 DAYS. PT STATES THAT HE HAS PAINFUL BURNING URINATION WITH DRIBBLING AND HESITANCY X1 WEEK. PT DENIES LOWER ABD PAIN AND HEMATURIA. PT ADMITS TAKING IBUPROFEN 600 MG HOWEVER PAIN COMES BACK. PT DENIES TAKING ANY IBUPROFEN TODAY. PT DENIES FEVER OR CHILLS. PT DENIES ANY SURGERIES. PT IS IN NO ACUTE DISTRESS AT THIS TIME. PT IS SITTING IN BED, BED IS LOCKED AND IN LOWEST POSITION. PMH: PANCREATITIS X 3 YEARS. PRE DIABETES X3 YEARS. ALLERGIES: AMOXICILLIN (RXN: HIVES AND THROAT SWELLING)
--- NOTE | 2020-07-20 19:41 | NUR ---
ERMD AT BEDSIDE
--- NOTE | 2020-07-20 19:45 | NUR ---
URINE SAMPLE WALKED OVER TO LAB
[2020-07-20] MEDS ORDERED: KETOROLAC 60 MG/2 ML VIAL IM ONE (19:50)
[2020-07-20 20:10] LABS: APPEARANCE,URINE CLEAR (CLEAR); BILIRUBIN,URINE NEGATIVE (NEGATIVE); BLOOD, URINE NEGATIVE (NEGATIVE); COLOR,URINE YELLOW (YELLOW); LEUKOCYTE ESTERASE ,URINE NEGATIVE (NEGATIVE); NITRITE, URINE NEGATIVE (NEGATIVE); PH,URINE 5.5 (5.0-9.0); UGLUCOSE NEGATIVE (NEGATIVE)
--- NOTE | 2020-07-20 20:25 | NUR ---
RANDY GONZALEZ AT BEDSIDE FOR RE EVALUATION.
[2020-07-20 20:40] VITALS: BP 148/49
--- NOTE | 2020-07-20 20:40 | NUR ---
Patient discharged with v/s stable. Written and verbal after care instructions given and explained. Patient alert, oriented and verbalized understanding of instructions. Ambulatory with steady gait. All questions addressed prior to discharge. ID band removed. Patient advised to follow up with PMD. Rx of PHENAZOPYRIDINE & NAPROSYN given. Patient educated on indication of medication including possible reaction and side effects. Opportunity to ask questions provided and answered.
== END 2020-07-20 20:40 | disposition home or self-care (01) ==
LOC: MED 18:58
DX: R30.0 Dysuria (principal); M54.5 Low back pain; Z88.1 Allergy status to other antibiotic agents
CPT/HCPCS: 81003; 87086; 96372; 99283; J1885; 81002

== ENCOUNTER 2022-07-26 21:19 | Emergency (ER) | payer MEDICAID ==
[~2022-07-26] VITALS: Ht 165.1 cm; Wt 86.2 kg
[2022-07-26 22:00] VITALS: BP 144/83
--- NOTE | 2022-07-27 01:35 | NUR ---
PT AMBULATE TO ROOM 7
--- NOTE | 2022-07-27 01:41 | NUR ---
51YR OLD MALE BIB SELF C/O EYE PAIN X1 WEEK. LEFT EYE HAD STYE ONE WEEK AGO PAIN 6/10 WITH DRAINAGE RIGHT EYE REDDNESS AT BOTTOM LID OF EYE WITH DRAINAGE PAIN LEVEL 6/10. DENIES BLURRED VISION OR FEVER. PT IS A&OX4 BED AT LOWEST POSITION SIDE RAILS UP X1 AMOX PRE DM PANCREATITIS (HX OF)
[2022-07-27] MEDS ORDERED: VIGOS OP (02:00)
[2022-07-27] MEDS ORDERED: [UNRECOGNIZED DRUG - CODE] LEFT EYE (02:00)
[2022-07-27 02:11] VITALS: BP 144/83
[2022-07-27] MEDS ORDERED: ACET-10509 PO (02:11)
--- NOTE | 2022-07-27 02:11 | NUR ---
Patient discharged with v/s stable. Written and verbal after care instructions given and explained. Patient verbalized understanding. Ambulatory with steady gait. All questions addressed prior to discharge. Advised to follow up with PMD.
--- NOTE | 2022-07-27 02:11 | NUR ---
Chart checked and completed.
== END 2022-07-27 02:11 | disposition home or self-care (01) ==
LOC: MED 21:19
DX: H10.9 Unspecified conjunctivitis (principal)
CPT/HCPCS: 99283

== ENCOUNTER 2023-05-22 20:30 | Emergency (ER) | payer MEDICAID ==
[~2023-05-22] VITALS: Ht 165.1 cm; Wt 90.7 kg
[~2023-05-22 20:30] MED LIST: ACET-10509 PO; VIGOS OP; [UNRECOGNIZED DRUG - CODE] LEFT EYE
[2023-05-22 20:45] VITALS: BP 141/96; PULSE 94; RESP 20; TEMP 98; O2SAT 98
[2023-05-22 21:35] LABS: BASOPHILS # (AUTO) 0.1 K/uL (0.00-0.22); BASOPHILS % (AUTO) 0.8 % (0.0-2.0); EOSINOPHILS # (AUTO) 0.1 K/uL (0-0.4); EOSINOPHILS % (AUTO) 0.7 % (0.0-4.0); HEMATOCRIT 38.6 % (36-52); LYMPHOCYTES # (AUTO) 3.3 K/uL (2.0-11.5); LYMPHOCYTES % (AUTO) 38.9 % (20.5-51.1); MEAN CORPUSCULAR HEMOGLOBIN 25 pg (27-31); MEAN CORPUSCULAR HGB CONC 34 g/dL (33-37); MEAN CORPUSCULAR VOLUME 75.6 fL (80-94); MONOCYTES # (AUTO) 0.6 K/uL (0.8-1.0); NEUTROPHILS # (AUTO) 4.4 K/uL (1.8-7.7); NEUTROPHILS % (AUTO) 52.6 % (42.2-75.2); PLATELET COUNT (AUTO) 264 K/uL (140-450); RED CELL DISTRIBUTION WIDTH 13.5 % (11.6-13.7); WHITE BLOOD COUNT (AUTO) 8.4 K/uL (4.8-10.8)
[2023-05-22 21:49] LABS: ALBUMIN 3.6 g/dL (3.4-5.0); ANION GAP 11.9 (8-16); CALCIUM 8.7 mg/dL (8.5-10.1); CREATININE 0.9 mg/dL (0.6-1.3); POTASSIUM 3.9 mmol/L (3.5-5.1); TOTAL BILIRUBIN 0.4 mg/dL (0.0-1.0); TOTAL PROTEIN, SERUM 7.7 g/dL (6.4-8.2)
[2023-05-22] MEDS ORDERED: BLOO1STR62 INH (22:54)
[2023-05-22] MEDS ORDERED: METF-1139 PO (22:54)
== END 2023-05-22 23:05 | disposition home or self-care (01) ==
LOC: MED 20:30
DX: E11.65 Type 2 diabetes mellitus with hyperglycemia (principal); I10 Essential (primary) hypertension; F41.9 Anxiety disorder, unspecified; R63.1 Polydipsia; R35.89 Other polyuria; H53.8 Other visual disturbances; Z79.899 Other long term (current) drug therapy; Z88.1 Allergy status to other antibiotic agents
CPT/HCPCS: 36415; 80053; 85025; 99283

== ENCOUNTER 2023-11-11 13:05 | Inpatient (IN) | payer SELFPAY ==
[~2023-11-11] VITALS: Ht 162.6 cm; Wt 75.3 kg
[~2023-11-11 13:05] MED LIST changes: +BLOO1STR62 INH; +METF-1139 PO
[2023-11-11 13:07] VITALS: BP 134/88; PULSE 106; RESP 18; TEMP 98.4; O2SAT 99
[2023-11-11 13:42] LABS: APPEARANCE,URINE CLEAR (CLEAR); BILIRUBIN,URINE NEGATIVE (NEGATIVE); BLOOD, URINE NEGATIVE (NEGATIVE); COLOR,URINE YELLOW (YELLOW); LEUKOCYTE ESTERASE ,URINE NEGATIVE (NEGATIVE); NITRITE, URINE NEGATIVE (NEGATIVE); PROTEIN,URINE NEGATIVE (NEGATIVE); UGLUCOSE 3+ (NEGATIVE); UROBILINOGEN,URINE 0.2 EU/dL (0.2 - 1)
[2023-11-11 14:20] LABS: HEMATOCRIT 39.3 % (36-52); HEMOGLOBIN 13.6 g/dL (12.0-18.0); MEAN CORPUSCULAR HEMOGLOBIN 26 pg (27-31); MEAN CORPUSCULAR HGB CONC 35 g/dL (33-37); MEAN CORPUSCULAR VOLUME 76.3 fL (80-94); PLATELET COUNT (AUTO) 298 K/uL (140-450); RED BLOOD CELL COUNT(AUTO) 5.15 MIL/uL (4.20-6.10); RED CELL DISTRIBUTION WIDTH 13.4 % (11.6-13.7); WHITE BLOOD COUNT (AUTO) 9.5 K/uL (4.8-10.8)
[2023-11-11 14:28] LABS: ANION GAP 15.7 (8-16); CALCIUM 7.5 mg/dL (8.5-10.1); CARBON DIOXIDE 24.4 mmol/L (21-32); CREATININE 0.8 mg/dL (0.6-1.3); POTASSIUM 4.1 mmol/L (3.5-5.1)
[2023-11-11] MEDS: NACL 0.9% 1,000 ML IV ONE ×2 (14:40→16:12)
[2023-11-11] MEDS: ONDANSETRON 4 MG/2 ML VIAL IVP ONE (14:58)
[2023-11-11] MEDS: MORPHINE SULFATE 4 MG/ML SYR IVP ONE ×2 (14:58→16:07)
[2023-11-11 15:07] LABS: TOTAL BILIRUBIN 0.6 mg/dL (0.0-1.0)
[2023-11-11 15:16] LABS: LYMPHOCYTES % (MANUAL) 20 % (20-46); MONOCYTES % (MANUAL) 7 % (5-12)
[2023-11-11 15:17] LABS: ANISOCYTOSIS 1+; EOSINOPHILS % (MANUAL) 2 % (0-4); PLATELET ESTIMATE ADEQUATE
[2023-11-11 15:18] LABS: SCHISTOCYTES 1+
[2023-11-11] MEDS: metroNIDAZOLE 500 MG/NS PREMIX 100 ML IV ONE (16:05)
[2023-11-11] MEDS: INSULIN REGULAR, HUMAN 100 UNIT/ML VIAL SUBQ ONE (16:07)
[2023-11-11] MEDS ORDERED: MULT-2429 PO (16:52)
[2023-11-11] MEDS: CIPROFLOXACIN 400 MG/200ML-D5W 200 ML IV ONE (17:47)
[2023-11-11] MEDS ORDERED: ZOLPIDEM 10 MG TAB PO PRN (19:00)
[2023-11-11] MEDS ORDERED: MAG SULF 2000 MG/WATER PREMIX 50 ML IV PRN (19:00)
[2023-11-11] MEDS: NACL 0.9% 1,000 ML IV SCH (19:36)
[2023-11-11 19:49] VITALS: O2SAT 99
[2023-11-11] MEDS: INSULIN LANTUS 100 UNITS/ML 10 ML VIAL SUBQ SCH (19:56)
[2023-11-11] MEDS ORDERED: MORPHINE SULFATE 4 MG/ML SYR ONE (20:01)
[2023-11-11] MEDS ORDERED: ONDANSETRON 4 MG/2 ML VIAL IVP PRN (20:50)
[2023-11-11 21:22] LABS: LACTIC ACID 1.1 mmol/L (0.4-2.0)
[2023-11-11 22:00] VITALS: O2SAT 98
[2023-11-11] MEDS: MORPHINE SULFATE 10 MG/ML VIAL IVP PRN (22:10)
[2023-11-11 22:30] VITALS: BP 117/61; PULSE 88; RESP 18; TEMP 97.3; O2SAT 98
[2023-11-11] MEDS ORDERED: DEXTROSE 50% 50 ML SYR IVP PRN (23:20)
[2023-11-12 04:00] VITALS: BP 122/70; PULSE 106; RESP 18; TEMP 98; O2SAT 98
[2023-11-12] MEDS: BLOOD GLUCOSE MONITORING 1 DEV DEV FS SCH (06:19)
[2023-11-12] MEDS: INSULIN LISPRO SLIDING SCALE 100 UNITS/ML VIAL SUBQ PRN (06:30)
[2023-11-12 08:00] VITALS: BP 126/89; PULSE 110; RESP 20; TEMP 97.4; O2SAT 97
[2023-11-12] MEDS: MORPHINE SULFATE 2 MG/ML SYR IVP PRN (08:20)
[2023-11-12] MEDS: ONDANSETRON 4 MG/2 ML VIAL IVP PRN (08:21)
[2023-11-12] MEDS ORDERED: INSULIN LANTUS 100 UNITS/ML 10 ML VIAL SUBQ SCH (09:00)
[2023-11-12 09:07] LABS: BASOPHILS % (AUTO) 0.3 % (0.0-2.0); HEMATOCRIT 41.4 % (36-52); HEMOGLOBIN 13.5 g/dL (12.0-18.0); LYMPHOCYTES # (AUTO) 1.1 K/uL (2.0-11.5); LYMPHOCYTES % (AUTO) 8.6 % (20.5-51.1); MEAN CORPUSCULAR HEMOGLOBIN 25 pg (27-31); MEAN CORPUSCULAR HGB CONC 33 g/dL (33-37); MEAN CORPUSCULAR VOLUME 77.3 fL (80-94); MONOCYTES # (AUTO) 0.3 K/uL (0.8-1.0); MONOCYTES % (AUTO) 2.3 % (1.7-9.3); NEUTROPHILS % (AUTO) 88.8 % (42.2-75.2); PLATELET COUNT (AUTO) 286 K/uL (140-450); RED BLOOD CELL COUNT(AUTO) 5.36 MIL/uL (4.20-6.10); RED CELL DISTRIBUTION WIDTH 14.1 % (11.6-13.7); WHITE BLOOD COUNT (AUTO) 12.4 K/uL (4.8-10.8)
[2023-11-12 12:00] VITALS: BP 125/84; PULSE 98; RESP 18; TEMP 97.6; O2SAT 98
[2023-11-12 15:13] LABS: ANION GAP 21.3 (8-16); CALCIUM 7.8 mg/dL (8.5-10.1); CARBON DIOXIDE 14.5 mmol/L (21-32); POTASSIUM 3.8 mmol/L (3.5-5.1)
[2023-11-12 15:14] LABS: CREATININE 0.7 mg/dL (0.6-1.3); TOTAL BILIRUBIN 0.6 mg/dL (0.0-1.0)
[2023-11-12 15:15] LABS: ALBUMIN 3.6 g/dL (3.4-5.0); TOTAL PROTEIN, SERUM 6.6 g/dL (6.4-8.2)
[2023-11-12 16:00] VITALS: BP 122/69; PULSE 111; RESP 18; TEMP 98.2; O2SAT 97
[2023-11-12] MEDS ORDERED: POLYETHYLENE GLYCOL 17 GM/PKT PO PRN (19:50)
[2023-11-12 20:00] VITALS: BP 111/81; PULSE 107; RESP 20; TEMP 98.6; O2SAT 97
[2023-11-13 06:11] LABS: BASOPHILS % (AUTO) 0.4 % (0.0-2.0); EOSINOPHILS % (AUTO) 0.2 % (0.0-4.0); HEMOGLOBIN 11.6 g/dL (12.0-18.0); LYMPHOCYTES # (AUTO) 1.4 K/uL (2.0-11.5); LYMPHOCYTES % (AUTO) 15.4 % (20.5-51.1); MEAN CORPUSCULAR HEMOGLOBIN 25 pg (27-31); MEAN CORPUSCULAR HGB CONC 33 g/dL (33-37); MEAN CORPUSCULAR VOLUME 76.5 fL (80-94); MONOCYTES # (AUTO) 0.3 K/uL (0.8-1.0); MONOCYTES % (AUTO) 3.6 % (1.7-9.3); NEUTROPHILS # (AUTO) 7.2 K/uL (1.8-7.7); NEUTROPHILS % (AUTO) 80.4 % (42.2-75.2); PLATELET COUNT (AUTO) 244 K/uL (140-450); RED BLOOD CELL COUNT(AUTO) 4.58 MIL/uL (4.20-6.10); RED CELL DISTRIBUTION WIDTH 14.5 % (11.6-13.7)
[2023-11-13 06:43] LABS: ANION GAP 14.1 (8-16); CALCIUM 7.8 mg/dL (8.5-10.1); CARBON DIOXIDE 21.2 mmol/L (21-32); CREATININE 0.7 mg/dL (0.6-1.3); POTASSIUM 3.3 mmol/L (3.5-5.1); TOTAL BILIRUBIN 0.7 mg/dL (0.0-1.0); TOTAL PROTEIN, SERUM 5.7 g/dL (6.4-8.2)
[2023-11-13 08:00] VITALS: BP 111/81; PULSE 107; PULSE 99; RESP 19; RESP 20; TEMP 98.6; O2SAT 96; O2SAT 97
[2023-11-13] MEDS: POTASSIUM CHLORIDE 10 MEQ TABER PO PRN (08:25)
[2023-11-13 16:00] VITALS: BP 100/62; PULSE 113; RESP 19; TEMP 97.8; O2SAT 96
[2023-11-13 20:00] VITALS: BP 118/75; PULSE 102; RESP 17; TEMP 97.9; O2SAT 98
[2023-11-14 04:00] VITALS: BP 108/64; PULSE 98; RESP 16; TEMP 98.7; O2SAT 96
[2023-11-14 05:12] LABS: BASOPHILS % (AUTO) 0.3 % (0.0-2.0); EOSINOPHILS # (AUTO) 0.1 K/uL (0-0.4); EOSINOPHILS % (AUTO) 1.1 % (0.0-4.0); HEMATOCRIT 29.5 % (36-52); HEMOGLOBIN 9.9 g/dL (12.0-18.0); LYMPHOCYTES # (AUTO) 1.9 K/uL (2.0-11.5); LYMPHOCYTES % (AUTO) 22.3 % (20.5-51.1); MEAN CORPUSCULAR HEMOGLOBIN 26 pg (27-31); MEAN CORPUSCULAR HGB CONC 34 g/dL (33-37); MEAN CORPUSCULAR VOLUME 76.4 fL (80-94); MONOCYTES # (AUTO) 0.4 K/uL (0.8-1.0); MONOCYTES % (AUTO) 4.3 % (1.7-9.3); NEUTROPHILS # (AUTO) 6.3 K/uL (1.8-7.7); PLATELET COUNT (AUTO) 236 K/uL (140-450); RED BLOOD CELL COUNT(AUTO) 3.86 MIL/uL (4.20-6.10); RED CELL DISTRIBUTION WIDTH 14.6 % (11.6-13.7); WHITE BLOOD COUNT (AUTO) 8.7 K/uL (4.8-10.8)
[2023-11-14] MEDS: ACETAMINOPHEN 325 MG TAB PO PRN (06:36)
[2023-11-14 07:19] LABS: ANION GAP 14.3 (8-16); CALCIUM 8.1 mg/dL (8.5-10.1); CARBON DIOXIDE 22.2 mmol/L (21-32); CREATININE 0.6 mg/dL (0.6-1.3); POTASSIUM 3.5 mmol/L (3.5-5.1); TOTAL BILIRUBIN 0.5 mg/dL (0.0-1.0); TOTAL PROTEIN, SERUM 6.1 g/dL (6.4-8.2)
[2023-11-14 08:00] VITALS: BP 106/64; PULSE 89; RESP 18; TEMP 98.1; O2SAT 97; O2SAT 98
[2023-11-14] MEDS: INSULIN LANTUS 100 UNITS/ML 10 ML VIAL SUBQ SCH (09:30)
[2023-11-14] MEDS: PANTOPRAZOLE 40 MG INJ VIAL IVP SCH (10:15)
[2023-11-14 16:00] VITALS: BP 112/72; PULSE 96; RESP 18; TEMP 98.6; O2SAT 98
[2023-11-14 20:00] VITALS: BP 111/69; PULSE 99; RESP 18; TEMP 99.1; O2SAT 98
[2023-11-14] MEDS: ALUMINUM HYD/MAG/SIMETHICONE 30 ML UDC PO PRN (21:53)
[2023-11-15 04:00] VITALS: BP 116/77; PULSE 92; RESP 18; TEMP 98.8; O2SAT 97
[2023-11-15 05:20] LABS: BASOPHILS % (AUTO) 0.4 % (0.0-2.0); EOSINOPHILS # (AUTO) 0.2 K/uL (0-0.4); EOSINOPHILS % (AUTO) 2.3 % (0.0-4.0); HEMOGLOBIN 10.1 g/dL (12.0-18.0); LYMPHOCYTES # (AUTO) 1.9 K/uL (2.0-11.5); LYMPHOCYTES % (AUTO) 25.5 % (20.5-51.1); MEAN CORPUSCULAR HEMOGLOBIN 26 pg (27-31); MEAN CORPUSCULAR HGB CONC 34 g/dL (33-37); MEAN CORPUSCULAR VOLUME 75.7 fL (80-94); MONOCYTES # (AUTO) 0.4 K/uL (0.8-1.0); MONOCYTES % (AUTO) 4.9 % (1.7-9.3); NEUTROPHILS # (AUTO) 4.9 K/uL (1.8-7.7); NEUTROPHILS % (AUTO) 66.9 % (42.2-75.2); PLATELET COUNT (AUTO) 269 K/uL (140-450); RED BLOOD CELL COUNT(AUTO) 3.96 MIL/uL (4.20-6.10); RED CELL DISTRIBUTION WIDTH 14.1 % (11.6-13.7); WHITE BLOOD COUNT (AUTO) 7.4 K/uL (4.8-10.8)
[2023-11-15 05:52] LABS: ANION GAP 10.7 (8-16); CALCIUM 8.1 mg/dL (8.5-10.1); CARBON DIOXIDE 26.4 mmol/L (21-32); CREATININE 0.6 mg/dL (0.6-1.3); POTASSIUM 3.1 mmol/L (3.5-5.1); TOTAL BILIRUBIN 0.4 mg/dL (0.0-1.0); TOTAL PROTEIN, SERUM 6.5 g/dL (6.4-8.2)
[2023-11-15] MEDS: INSULIN LANTUS 100 UNITS/ML 10 ML VIAL SUBQ SCH (08:30)
[2023-11-15 09:15] VITALS: PULSE 95; RESP 17; O2SAT 97
[2023-11-15 16:00] VITALS: BP 113/74; PULSE 89; RESP 18; TEMP 97.6; O2SAT 100
[2023-11-15 17:13] LABS: CHOLESTEROL 509 mg/dL (<200); HDL CHOLESTEROL 26 mg/dL (40-60); TRIGLYCERIDES 1635 mg/dL (30-150)
[2023-11-15 17:14] LABS: CHOL/HDL RATIO 19.6 (1-4.5)
[2023-11-15] MEDS ORDERED: INSU100S22 SUBQ (17:49)
[2023-11-15] MEDS ORDERED: ATOR40TA40 PO (17:49)
[2023-11-15] MEDS ORDERED: FENO67CA PO (17:49)
== END 2023-11-15 18:25 | disposition home or self-care (01) | DRG 438 ==
LOC: MED 13:05 → MMU 16:38 → MTU 16:38
PROVIDERS: ADMIT Family Medicine; ATTEND Family Medicine
DX: K85.90 Acute pancreatitis without necrosis or infection, unspecified (principal); E11.00 Type 2 diabetes mellitus with hyperosmolarity without nonketotic hyperglycemic-hyperosmolar coma (NKHHC); E44.0 Moderate protein-calorie malnutrition; E78.1 Pure hyperglyceridemia; E87.6 Hypokalemia; Z68.28 Body mass index [BMI] 28.0-28.9, adult; Z88.8 Allergy status to other drugs, medicaments and biological substances
CPT/HCPCS: 36415; 76705; 80048; 80053; 80076; 81003; 82009; 82948; 83036; 83605; 83690; 84484; 85025; 87040; 87081; 93005; 96361; 96365; 96372; 96375; 96376; 99285; C9113; J0744; J1644; J1815; J2270; J2405; J3490; Q0092; Q9967